=== PATIENT | male | born 1990 | race Caucasian/White ===

== ENCOUNTER 2017-06-13 20:50 | Emergency (ER) | payer OTHER ==
[2017-06-13 21:08] VITALS: BP 124/70; PULSE 80; RESP 14; TEMP 98.8; O2SAT 99
--- NOTE | 2017-06-13 21:20 | C.PDOC ---
History Of Present Illness 27 year old male presents to the ED c/o left ankle pain that started today. Patient reports he was playing basketball at 19:30 when he twisted his ankle and fell on his butt. Patient denies LOC, headache, back pain, weakness, numbness. Time Seen by Provider: 06/13/17 21:09 Chief Complaint (Nursing): Lower Extremity Problem/Injury History Per: Patient History/Exam Limitations: no limitations Onset/Duration Of Symptoms: Days Current Symptoms Are (Timing): Still Present Recent travel outside of the [place]: No Additional History Per: Patient - Ankle/Foot Description Of Injury: Twisted Currently Unable To: Bear Weight Past Medical History Reviewed: Historical Data, Nursing Documentation, Vital Signs Vital Signs: Last Vital Signs Temp 98.8 F 06/13/17 21:06 Pulse 80 06/13/17 21:06 Resp 14 06/13/17 21:06 BP 124/70 06/13/17 21:06 Pulse Ox 99 06/13/17 22:23 - Medical History PMH: No Chronic Diseases Surgical History: No Surg Hx Family History: States: Unknown Family Hx - Social History Hx Alcohol Use: Yes Hx Substance Use: No - Immunization History Hx Tetanus Toxoid Vaccination: Yes Hx Influenza Vaccination: Yes Hx Pneumococcal Vaccination: No Review Of Systems Constitutional: Negative for: Fever, Chills Musculoskeletal: Positive for: Foot Pain. Negative for: Neck Pain, Back Pain Skin: Negative for: Rash Neurological: Negative for: Weakness, Numbness, Headache Physical Exam - Physical Exam Appears: Non-toxic, No Acute Distress Skin: Normal Color, Warm, Dry Head: Atraumatic, Normacephalic Neck: No Midline Cervical Tenderness Back: No Vertebral Tenderness Extremity: Normal ROM (painful on left ankle due to pain), Tenderness (left lateral malleolus), Capillary Refill (< 2 seconds), No Deformity, Swelling ( left lateral malleolus), Other Extremity: Bilateral: Normal Color And Temperature Pulses: Left Dorsalis Pedis: Normal, Right Dorsalis Pedis: Normal Neurological/Psych: Oriented x3, Normal Speech, Normal Cognition, Normal Motor, Normal Sensation ED Course And Treatment O2 Sat by Pulse Oximetry: 99 (ON RA) Pulse Ox Interpretation: Normal Orthopedic Time Performed: 22:20 Time Out: Side verified, Site verified Procedure: Splint Type: Long, Posterior Location: Left, Leg Consent obtained: Verbal Performed by: Bradley-level Provider (done by cp, checked by me) Diagnosis: Sprain Location: Left, Lateral Bone: Malleolus Capillary refill: Normal Distal Sensation: Normal Distal Motor Function: Normal Capillary Refill: Normal Compartment: Normal, Soft Distal Sensation: Normal Distal Motor Function: Normal Patient tolerated procedure: Well Medical Decision Making Medical Decision Making: Plan: * Tylenol 975 mg PO * Left ankle X-Ray 2215 pm no fx noted on xray, posterior splint applied, and crutches given Disposition Counseled Patient/Family Regarding: Studies Performed, Diagnosis, Need For Followup, Rx Given - Disposition Referrals: Gabriele Mckinney III, MD [Staff Provider] - [facility] [Outside] Disposition: HOME/ ROUTINE Disposition Time: 22:37 Condition: GOOD Additional Instructions: Please keep left leg elevated whenever possible. No weight bearing,- use crutches until re-evaluated by orthopedics or podiatry- call both for soonest appointment on friday morning. Keep splint clean and dry, cover with plastic when bathing. Tylenol or Motrin for pain. Return to ER for worse pain. numnbness or tingling in leg, leg or turns are blue or any other concerns. Cold compress to swollen part for 20 minutes at at time, 4 times per day Prescriptions: Acetaminophen [Tylenol 325mg tab] 650 mg PO Q4 #50 tab Instructions: Ankle Sprain (DC), How to Use Crutches Forms: [facility] (Gambian), General Discharge Instructions - Clinical Impression Clinical Impression: Left ankle sprain - PA / CRITICAL CARE REGISTERED NURSE / Resident Statement MD/DO has reviewed & agrees with the documentation as recorded. - Scribe Statement The provider has reviewed the documentation as recorded by the Scribe Giovani Dumont All medical record entries made by the Scribe were at my direction and personally dictated by me. I have reviewed the chart and agree that the record accurately reflects my personal performance of the history, physical exam, medical decision making, and the department course for this patient. I have also personally directed, reviewed, and agree with the discharge instructions and disposition.
--- NOTE | 2017-06-14 11:59 | RAD ---
PROCEDURE: Left Ankle Radiographs. HISTORY: twisted, lat mal pain and swelling COMPARISON: None FINDINGS: BONES: Normal. No fracture. JOINTS: Normal. No osteoarthritis. Ankle mortise maintained. Talar dome intact SOFT TISSUES: Moderate to significant soft tissue swelling overlying the lateral malleolus OTHER FINDINGS: None. IMPRESSION: No evidence of acute displaced fracture nor dislocation. Moderate to significant soft tissue swelling overlying the lateral malleolus
== END 2017-06-13 22:48 | disposition home or self-care (01) ==
LOC: C.ER 20:50
DX: S93.402A Sprain of unspecified ligament of left ankle, initial encounter (principal); W19.XXXA Unspecified fall, initial encounter; Y93.67 Activity, basketball